=== PATIENT | female | born 1980 | race Two or more races ===

== ENCOUNTER → 2020-05-14 | Day surgery (SDC) | payer OTHER ==
[~2020-05-14] VITALS: Ht 170.2 cm; Wt 91.6 kg
[2020-05-14] VITALS (12 sets, daily range): BP systolic 103–121; BP diastolic 63–86
[~2020-05-14] MED LIST: Acetaminophen (Non formulary) 100 ML IV ONE; Atropine Sulfate 0.4mg/ml inj IVP PRN; Bupivacaine 0.25% Inj 30ml INJ ONE; Clindamycin 600mg/D5W 50ml IV ONE; D5 1/2NS 1,000 ML IV SCH; DiphenhydrAMINE 50mg/ml Inj IVP PRN; Duramorph PF 5mg/10ml amp ONE; HYDROcodone/Acetamin 5/325 tab ORAL PRN; Kenalog-40 1ml Vial ONE; Ketorolac 30mg Inj IV PRN; Ketorolac 30mg Inj ONE; LORazepam Inj 2mg/ml 1ml IV PRN; LR 1000ml 1,000 ML IVLG SCH; LR 1000ml ONE; Labetalol 5mg/ml 20ml vial IV PRN; Lidocaine 1% 10mg/ml/Epi 0.005mg/ml 30ml vial INJ ONE; Lidocaine 1% MPF 10mg/ml 5ml ONE; Meperidine 25mg/0.5ml Inj (FOR RIGORS ONLY) IV PRN; Metoclopramide 10mg/2ml Inj IVP PRN; Midazolam 2mg/2ml Inj IVP PRN; NS Irrig 4000ml IRRIG ONE; Sodium Chloride 10ml vial INJ ONE; Sterile Water Irrig 1000ml IRRIG ONE; Tylenol #3 tab (300mg/30mg) ORAL PRN; celeBREX 200mg Cap **SURGERY PATIENTS ONLY ORAL ONE; fentaNYL 100 mcg/2 mL IV ONE; fentaNYL 100 mcg/2 mL IV PRN; oxyCONTIN 20mg tab ORAL ONE
--- NOTE | 2020-05-14 07:37 | Pre-Procedure Note/Attestation ---
Pre-Procedure Note/Attestation Complete Prior to Procedure Planned Procedure: left Procedure Narrative: knee arthroscopy, menisectomy Indications for Procedure Pre-Operative Diagnosis: left knee meniscus tear Attestation I attest that I discussed the nature of the procedure; its benefits; risks and complications; and alternatives (and the risks and benefits of such alternatives ), prior to the procedure, with the patient (or the patient's legal customer support representative). I attest that, if there was a reasonable possibility of needing a blood transfusion, the patient (or the patient's legal customer support representative) was given the [facility] standardized written summary, pursuant to the [place] Blood Safety Act ([place] Health and Safety Code # 1645, as amended). I attest that I re-evaluated the patient just prior to the surgery and that there has been no change in the patient's H&P, except as documented below: Bob Tony MD May 14, 2020 07:37
--- NOTE | 2020-05-14 07:38 | Operative Note - PDOC ---
Operative Note Operative Note Pre-op Diagnosis: left knee meniscus tear Procedure: see op report Post-op Diagnosis: same as pre-op plus Operative Findings: consistent w/pre-op dx studies Anesthesia: regional Specimen: none Complications: none Condition: stable Estimated Blood Loss: none Implant(s) used?: No Bob Tony MD May 14, 2020 07:38
--- NOTE | 2020-05-14 07:42 | Anethesia Preoperative Eval ---
Anesthesia Pre-op PMH/ROS General Date of Evaluation: May 14, 2020 Time of Evaluation: 07:19 Anesthesiologist: Ksenia ASA Score: ASA 2 Mallampati Score Class I : Soft palate, uvula, fauces, pillars visible Class II: Soft palate, uvula, fauces visible Class III: Soft palate, base of uvula visible Class IV: Only hard plate visible Mallampati Classification: Class II Surgeon: Chavo Diagnosis: L Knee Pain Surgical Procedure: L Knee Arthroscopy Family History: no anesthesia problems Allergies: Coded Allergies: ACETAMINOPHEN (Verified Allergy, Unknown, 05/13/20) CEFTRIAXONE (Verified Allergy, Unknown, 05/13/20) HYDROCODONE (Verified Allergy, Unknown, 05/13/20) PENICILLINS (Verified Allergy, Unknown, 05/13/20) Medications: see eMAR Patient NPO?: Yes Past Medical History Endocrine: Reports: hypothyroidism Other: obesity - BMI 33 Anesthesia Pre-op Phys. Exam Physician Exam Last Vital Signs Date Time Temp Pulse Resp B/P (MAP) Pulse Ox O2 Delivery O2 Flow Rate FiO2 05/14/20 06:28 Room Air 05/14/20 06:17 97.9 18 107/64 100 Constitutional: NAD Neurologic: CN 2-12 intact Cardiovascular: RRR Respiratory: CTA Airway Exam Mallampati Score: Class II MO: full ROM: full Teeth: intact Anesthesia Pre-op A/P Labs Urine Test Test 05/14/20 06:00 Urine HCG, Qualitative Negative (NEGATIVE) Risk Assessment & Plan Assessment: ASA 2 Plan: GA, SED Status Change Before Surgery: No Pre-Antibiotics Dru Gram Ancef IV Given Within 1 Hr of Incision: Yes Time Given: 07:46 Oscar Mccormack MD May 14, 2020 07:42
--- NOTE | 2020-05-14 08:22 | Immediate Post-Op Evaluation ---
Immediate Post-Op Evalulation Immediate Post-Op Evalulation Procedure: L Knee Arthroscopy Date of Evaluation: May 14, 2020 Time of Evaluation: 08:45 IV Fluids: 600 LR Blood Products: 0 Estimated Blood Loss: 25 Urinary Output: 0 Blood Pressure Systolic: 122 Blood Pressure Diastolic: 86 Pulse Rate: 84 Respiratory Rate: 16 O2 Sat by Pulse Oximetry: 100 Temperature (Fahrenheit): 98.1 Pain Score (1-10): 2 Nausea: No Vomiting: No Complications 0 Patient Status: awake, reacts, patent, none Hydration Status: adequate Dru Gram Ancef IV Given Within 1 Hr of Incision: Yes Time Given: 07:46 Oscar Mccormack MD May 14, 2020 08:22
--- NOTE | 2020-05-14 08:29 | 48 Hour Post Anesthesia Eval ---
Post Anesthesia Evaluation Procedure: L Knee Arthroscopy Date of Evaluation: May 14, 2020 Time of Evaluation: 10:52 Blood Pressure Systolic: 117 0: 74 Pulse Rate: 73 Respiratory Rate: 18 Temperature (Fahrenheit): 98.4 O2 Sat by Pulse Oximetry: 100 Airway: patent Nausea: No Vomiting: No Pain Intensity: 2 Hydration Status: adequate Cardiopulmonary Status: Stable Mental Status/LOC: patient returned to baseline Follow-up Care/Observations: 0 Post-Anesthesia Complications: 0 Follow-up care needed: ready to discharge Oscar Mccormack MD May 14, 2020 08:29
--- NOTE | 2020-05-14 10:44 | Operative Note - Dictated ---
DATE OF OPERATION: 05/14/2020 PREOPERATIVE DIAGNOSIS: Left knee lateral meniscus tear. POSTOPERATIVE DIAGNOSES: 1. Grade 2 chondral damage, medial patellar facet. 2. Symptomatic medial plica. 3. Hypertrophic synovial tissue, medial and lateral patellofemoral compartment. 4. Partial longitudinal ACL tear. 5. Lateral meniscus tear involving the anterior horn and body. PROCEDURES: 1. Left knee diagnostic arthroscopy with partial lateral meniscectomy. 2. Chondroplasty, patellofemoral compartment. 3. Synovectomy, medial and lateral patellofemoral compartment. SURGEON: Bob Tony MD. ANESTHESIA: MAC with local. INDICATION FOR PROCEDURE: The patient is a pleasant female who has had progressive left knee pain. An MRI, which showed evidence of meniscal tear. She failed conservative treatment and elected to undergo left knee diagnostic arthroscopy and possible meniscectomy. Risks, limitations, expectations, and complications of the procedure were discussed in detail. All questions addressed. DESCRIPTION OF PROCEDURE: After informed consent was obtained, the patient was brought to the operating room. The patient was placed under general anesthesia. Left leg was prepped and draped in a sterile manner and time-out was performed. Inferolateral stab incision was then made. Trocar was introduced in the knee joint. There was some grade 2 chondral damage in the medial patellar facet. There was thickening of medial plica medially. There was hypertrophic synovial tissue in medial compartment extending into intercondylar notch, lateral compartment. Medial working portal was established. Synovectomy in the medial intercondylar notch and lateral compartment was performed. Medial compartment was entered, free of any meniscal chondral damage. ACL was noted to have a longitudinal tear at the tibial insertion with incontinuity. Lateral compartment was entered. There was some fraying and tearing of the anterior horn and body of the meniscus. Partial meniscectomy with combination of shaver was performed. Camera was then repositioned into patellofemoral compartment. Synovectomy and excision of the plica was completed. Gentle chondroplasty was performed. Instrument was removed. Portal sites were closed. The patient was awoken and taken to recovery room with stable vital signs. ESTIMATED BLOOD LOSS: None. COMPLICATIONS: None. SPECIMENS: None. Bob Tony M.D. DR: EDUARDO JOB#: [id number] CC:
== END | disposition home or self-care (01) ==
LOC: SUR 05:46
DX: S83.282A Other tear of lateral meniscus, current injury, left knee, initial encounter (principal); S83.512A Sprain of anterior cruciate ligament of left knee, initial encounter; M67.262 Synovial hypertrophy, not elsewhere classified, left lower leg; M67.52 Plica syndrome, left knee; X58.XXXA Exposure to other specified factors, initial encounter; Y92.9 Unspecified place or not applicable; Y99.8 Other external cause status; E03.9 Hypothyroidism, unspecified; E66.9 Obesity, unspecified; Z88.0 Allergy status to penicillin; Z88.6 Allergy status to analgesic agent; Z68.31 Body mass index [BMI] 31.0-31.9, adult
CPT/HCPCS: 29876; 29881; 81025; 94003; J0131; J0690; J1100; J1885; J2250; J2405; J2704; J3010; J3301; J3490; J7120; 94150